=== PATIENT | male | born 2000 | race Hispanic/Latino ===

== ENCOUNTER 2020-02-29 00:36 | Emergency (ER) | payer OTHER ==
[~2020-02-29] VITALS: Ht 175.3 cm; Wt 74.5 kg
[2020-02-29 00:38] VITALS: BP 129/65
[2020-02-29] MEDS ORDERED: BICILLIN L-A 2,400,000 UNIT/4 ML SYRINGE (J0561-24)PENICILLIN G BENZATINE IM ONE (01:15)
[2020-02-29 02:48] LABS: CHLAMYDIA DNA AMPLIFICATION NEGATIVE (NEGATIVE); GC DNA AMPLIFICATION NEGATIVE (NEGATIVE)
[2020-03-01 10:58] LABS: HEPATITIS B SURFACE ANTIBODY POSITIVE (POSITIVE); HEPATITIS B SURFACE ANTIGEN NEGATIVE (NEGATIVE); HEPATITIS C VIRUS ABY INDEX 0.1 INDEX (<0.8); HIV 1&2 SCREEN CENTAUR NEGATIVE (NEGATIVE)
== END 2020-02-29 02:00 | disposition home or self-care (01) ==
LOC: M ED 00:36
DX: Z20.2 Contact with and (suspected) exposure to infections with a predominantly sexual mode of transmission (principal); A51.0 Primary genital syphilis
CPT/HCPCS: 36415; 86706; 86780; 86803; 87340; 87389; 87661; 96372; 99282; J0561